=== PATIENT | female | born 1975 | race Caucasian/White ===

== ENCOUNTER 2019-07-13 11:51 | Emergency (ER) | payer BC ==
[2019-07-13 12:39] VITALS: BP 106/70
--- NOTE | 2019-07-13 12:46 | UC ---
Ear Complaint HPI - HPI Summary HPI Summary: presents with c/o of gradual onset of right side ear pain. Pt denies nasal congestion, fever, chills, injury or recent dental work. - History of Current Complaint Chief Complaint: UCEar Stated Complaint: RIGHT EAR Time Seen by Provider: 07/13/19 12:35 Hx Obtained From: Patient Hx Last Menstrual Period: 07/13/19 ?: No Onset/Duration: Gradual Onset, Lasting Days, Still Present, Worse Since - onset Severity Initially: Mild Severity Currently: Moderate Pain Intensity: 6 Aggravating Factors: Nothing Alleviating Factors: Nothing - Allergies/Home Medications Allergies/Adverse Reactions: Allergies Allergy/AdvReac Type Severity Reaction Status Date / Time No Known Allergies Allergy Verified 07/13/19 12:29 Home Medications: Home Medications Levothyroxine TAB* [Synthroid 100 MCG TAB*] 200 mcg PO DAILY 07/13/19 [History Confirmed 07/13/19] PMH/Surg Hx/FS Hx/Imm Hx Previously Healthy: Yes - Surgical History Surgical History: Yes Surgery Procedure, Year, and Place: timothy. R thyroid removed due to goiter - Family History Known Family History: Positive: Cardiac Disease - Social History Occupation: Unemployed Lives: With Family Alcohol Use: None Substance Use Type: None Smoking Status (MU): Never Smoked Tobacco Have You Smoked in the Last Year: No Review of Systems All Other Systems Reviewed And Are Negative: Yes Constitutional: Positive: Negative Skin: Positive: Negative Eyes: Positive: Negative ENT: Positive: Ear Ache - right Respiratory: Positive: Negative Cardiovascular: Positive: Negative Gastrointestinal: Positive: Negative Genitourinary: Positive: Negative Motor: Positive: Negative Neurovascular: Positive: Negative Musculoskeletal: Positive: Negative Neurological: Positive: Negative Psychological: Positive: Negative Is Patient Immunocompromised?: No Physical Exam Triage Information Reviewed: Yes Appearance: Well-Appearing Vital Signs: Initial Vital Signs Temp 98.4 F 07/13/19 12:30 Pulse 70 07/13/19 12:30 Resp 17 07/13/19 12:30 BP 106/70 07/13/19 12:30 Pulse Ox 97 07/13/19 12:30 Vital Signs Reviewed: Yes Eye Exam: Normal ENT: Positive: Other - moderate swelling in right ear canal, pt c/o pain with PE Dental Exam: Normal Neck exam: Normal Respiratory Exam: Normal Respiratory: Positive: No respiratory distress Musculoskeletal Exam: Normal Neurological Exam: Normal Psychological Exam: Normal Skin Exam: Normal Ear Complaint Course/Dx - Differential Dx/Diagnosis Differential Diagnosis/HQI/PQRI: Otitis Externa, Otitis Media, URI Provider Diagnosis: Otitis externa of right ear Discharge ED - Sign-Out/Discharge Documenting (check all that apply): Patient Departure All imaging exams completed and their final reports reviewed: No Studies - Discharge Plan Condition: Stable Disposition: HOME Prescriptions: Ciproflox/Dexameth OTIC.SUSP* [Ciprodex OTIC.SUSP*] 3 drop RIGHT EAR Q8H 7 Days #1 btl Patient Education Materials: Otitis Externa (ED), Safe Use of NSAIDs (ED) Referrals: [facility] [place] [facility]FERR[facility] [Outside] - If Needed No Primary Care Phys,NOPCP [Primary Care Provider] - - Billing Disposition and Condition Condition: STABLE Disposition: Home
== END 2019-07-13 12:51 | disposition home or self-care (01) ==
LOC: UCCORT 11:51
DX: H60.91 Unspecified otitis externa, right ear (principal); E89.0 Postprocedural hypothyroidism
CPT/HCPCS: 99212; G0463

== ENCOUNTER 2019-11-07 13:19 | Emergency (ER) | payer BC ==
--- OUTSIDE RECORDS SUMMARY | 2019-11-07 13:24 | XMS REPORT | Continuity of Care Document ---
:1975 External Reference #:[id number] Author Name Faraz Ivan M.D. 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 [phone] Problems Description No Information Available Social History Type Date Description Comments Sex Female Tobacco Use Start: Unknown End: Unknown Former Cigarette Smoker Cigarette Use Quit 19 Years Ago ETOH Use Rarely consumes alcohol Recreational Drug Use Never Used Drugs Allergies, Adverse Reactions, Alerts Description No Known Drug Allergies Medications Active Medications SIG Qnty Indications Ordering Provider Date Levothyroxine Sodium 1 by mouth 90tabs Faraz Ivan, 05/30/2018 125mcg every day M.DSharda Tablets Immunizations Description No Information Available Vital Signs Date Vital Result Comment 10/06/2019 2:27pm Weight 228.00 lb Height 65 inches 5'5" BMI (Body Mass Index) 37.9 kg/m2 BP Systolic 122 mmHg BP Diastolic 79 mmHg Heart Rate 86 /min O2 % BldC Oximetry 95 % Body Temperature 97.6 F Pain Level 0 07/18/2019 7:23am Weight 224.00 lb Height 65 inches 5'5" BMI (Body Mass Index) 37.3 kg/m2 BP Systolic 124 mmHg BP Diastolic 87 mmHg Heart Rate 76 /min O2 % BldC Oximetry 96 % Body Temperature 96.9 F Pain Level 0 Results Description No Information Available Procedures Date Code Description Status 07/18/2019 24030 Ultrasound Head/Neck Completed Medical Devices Description No Information Available Encounters Type Date Location Provider Dx Diagnosis Office Visit 07/18/2019 Main Office Faraz Ivan M.D. E04.1 Nontoxic single 7:15a thyroid nodule E03.9 Hypothyroidism, unspecified Assessments Date Code Description Provider 07/18/2019 E04.1 Nontoxic single thyroid nodule Faraz Ivan M.D. 07/18/2019 E03.9 Hypothyroidism, unspecified Faraz Ivan M.D. Plan of Treatment No Information Available Functional Status Description No Information Available Mental Status Description No Information Available Referrals Description No Information Available
[2019-11-07 14:12] VITALS: BP 153/81
--- NOTE | 2019-11-07 14:38 | UC ---
General HPI - HPI Summary HPI Summary: Patient is a 44yo female presenting with c/o burning, tingling, red bumps on upper lipsx2 days. Patient states that 10/30/19 had tooth extractions. States she developed tingling a couple days later, follow by burning. States that this morning a red bump on upper lip "popped up." Notes small amount of clear fluid came from lesion earlier in the day. Denies itching. Denies pain. Denies other lesions. Denies internal lesions in mouth. Denies anything like this in the past. - History of Current Complaint Chief Complaint: UCSkin Stated Complaint: MOUTH ISSUES Hx Obtained From: Patient Hx Last Menstrual Period: 09/24/19 Pain Intensity: 0 - Allergy/Home Medications Allergies/Adverse Reactions: Allergies Allergy/AdvReac Type Severity Reaction Status Date / Time No Known Allergies Allergy Verified 11/07/19 14:04 Home Medications: Home Medications Ibuprofen TAB* [Motrin TAB* 800 MG] 800 mg PO Q8HR PRN 11/07/19 [History Confirmed 11/07/19] Levothyroxine Sodium [Levo-T] 150 mcg PO DAILY 11/07/19 [History Confirmed 11/07] PMH/Surg Hx/FS Hx/Imm Hx Previously Healthy: Yes Endocrine History: Hypothyroidism - Surgical History Surgical History: Yes Surgery Procedure, Year, and Place: timothy. R thyroid removed due to goiter - Family History Known Family History: Positive: Cardiac Disease - Social History Alcohol Use: None Substance Use Type: None Smoking Status (MU): Former Smoker Type: Cigarettes Have You Smoked in the Last Year: No Review of Systems All Other Systems Reviewed And Are Negative: Yes Constitutional: Positive: Negative Skin: Positive: Other - tingling, burning, red "lump" of upper lip ENT: Positive: Negative. Negative: Dental Pain, Sore Throat Respiratory: Positive: Negative Cardiovascular: Positive: Negative Musculoskeletal: Positive: Negative. Negative: Edema Neurological: Positive: Paresthesia - upper lip. Negative: Numbness Physical Exam Triage Information Reviewed: Yes Appearance: Well-Appearing, No Pain Distress, Well-Nourished Vital Signs: Initial Vital Signs Temp 98.4 F 11/07/19 14:02 Pulse 79 11/07/19 14:02 Resp 16 11/07/19 14:02 BP 153/81 11/07/19 14:02 Pulse Ox 99 11/07/19 14:02 Vital Signs Reviewed: Yes Eyes: Positive: Conjunctiva Clear ENT: Positive: Hearing grossly normal, Pharynx normal, Uvula midline, Other - oromuscosa without lesions. Negative: Pharyngeal erythema, Dental tenderness Neck exam: Normal Neck: Positive: Supple, Nontender, No Lymphadenopathy Respiratory Exam: Normal Respiratory: Positive: Lungs clear, Normal breath sounds, No respiratory distress Cardiovascular Exam: Normal Cardiovascular: Positive: RRR Neurological: Positive: Alert Psychological: Positive: Decreased Age Appropriate Behavior, Inconsolable Skin: Positive: Significant Lesion(s) - erythematous vesicular lesion ~ 0.4cm noted of left side upper lip. multiple smaller vesicular lesions surrounding lesion. no edema. no pain with palpation. nondraining. nonbleeding Course/Dx - Course Course Of Treatment: Discussed probable HSV1 infection causing cold sore lesion. Patient became upset upon hearing information. I continued to educate the patient on HSV1. I treated with acyclovir and instructed to use otc abreva for symptom relief. Educated on how infection spreads and instructed to avoid close contact with others. Instructed to follow up with pcp or derm for further evaluation if symptoms persist. Patient inconsolable but voiced understanding and agreed with treatment plan. 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 Take Acyclovir as prescribed to help reduce length of symptoms. You may also apply over the counter Abreva to the area. Do not scratch or pick at the lesions. Avoid close contact with others to decrease chance of spreading infection. Follow up with your primary care provider or the dermatology referral listed below if symptoms worsen or do not resolve within 2 weeks. - Billing Disposition and Condition Condition: STABLE Disposition: Home
== END 2019-11-07 15:18 | disposition home or self-care (01) ==
LOC: UCCORT 13:19
DX: B00.9 Herpesviral infection, unspecified (principal); E03.9 Hypothyroidism, unspecified; Z79.890 Hormone replacement therapy; Z87.891 Personal history of nicotine dependence
CPT/HCPCS: 99212; G0463